=== PATIENT | female | born 1985 | race Caucasian/White ===

== ENCOUNTER 2018-08-26 09:10 | Emergency (ER) | payer BC ==
[2018-08-26] MEDS: ONDANSETRON (ODT) 4 MG TAB ODT (10:05)
[2018-08-26] MEDS: HYDROCODONE/APAP (5/325) TAB PO (10:05)
[2018-08-26 10:11] LABS: URINE BLOOD (Dip) POC Negative (NEGATIVE); URINE GLUCOSE (Dip) POC Negative (NEGATIVE); URINE KETONES (Dip) POC Negative (NEGATIVE); URINE LEUKOCYTE EST (Dip) POC Negative (NEGATIVE); URINE NITRITE (Dip) POC Negative (NEGATIVE); URINE TOTAL PROTEIN POC Negative (NEGATIVE)
[2018-08-26 10:11] LABS: URINE PH (Dip) POC 5.5 (5.0-8.5)
== END 2018-08-26 11:54 | disposition home or self-care (01) ==
LOC: FTE 09:10
DX: M54.9 Dorsalgia, unspecified (principal)
CPT/HCPCS: 72131; 81003; 81025; 99284-25